=== PATIENT | female | born 1990 | race Caucasian/White ===

== ENCOUNTER → 2018-10-16 14:51 | Outpatient (CLI) | payer OTHER, SELFPAY ==
[2018-10-16 15:45] LABS: Basophils % 0.3 % (0.1-2.0); Eosinophils # 0.1 K/mm3 (0.0-0.4); Eosinophils % 1.1 % (0.1-12.0); Hematocrit 39.8 % (37.0-47.0); Lymphocytes # 2.2 K/mm3 (0.7-4.5); Lymphocytes % 17.5 % (10-50); Mean Corpuscular HGB Conc 32.6 g/dL (31.8-35.4); Mean Corpuscular Hemoglobin 30.2 pg (27.0-31.2); Mean Corpuscular Volume 92.6 fl (81-99); Mean Platelet Volume 6.7 fl (7.4-10.4); Monocytes # 0.4 K/mm3 (0.1-1.0); Neutrophils # 9.6 K/mm3 (1.8-7.8); Neutrophils % 78.1 % (37.0-80.0); Platelet Count 389 K/mm3 (142-424); Red Cell Distribution Width 13.1 % (11.5-17.5); White Blood Count 12.3 K/mm3 (4.8-10.8)
[2018-10-16 17:18] LABS: Thyroid Stimulating Hormone 3.21 uIU/ml (0.358-3.740)
[2018-10-19 07:02] LABS: HIV Screen 4th Generation wRfx Non Reactive (Non Reactive); Hepatitis B Surface Antigen Negative (Negative); Rapid Plasma Reagin Ab Titer Non Reactive (NonRea<1:1)
[2018-10-21 13:03] LABS: Rubella Antibodies, IgG 1.59 index (Immune >0.99)
== END ==
PROVIDERS: Visit Provider Obstetrics & Gynecology
DX: Z34.90 Encounter for supervision of normal pregnancy, unspecified, unspecified trimester (principal)
CPT/HCPCS: 36415; 84443; 85025; 86592; 86703; 86762; 86850; 87340; G0432

== ENCOUNTER → 2018-12-24 09:06 | Outpatient (CLI) | payer OTHER, SELFPAY ==
[2018-12-26 13:15] LABS: AFP Value 19.3 ng/mL (.); DIA MoM 0.74 (.); DIA Value 94.91 pg/mL (.); DSR (Second Trimester) 1 IN 9058 (.); Gest. Age on Collection Date 17.3 WEEKS (.); Maternal Age At EDD 29.8 yr (.); OSBR Risk 1 IN 10000 (.); Results Report (.); hCG MoM 0.66 (.); hCG Value 14859 mIU/mL (.); uE3 MoM 0.92 (.); uE3 Value 0.91 ng/mL (.)
[2018-12-28 08:20] LABS: Gestat. Age Based On EDD (.)
== END ==
PROVIDERS: Visit Provider Obstetrics & Gynecology
DX: Z34.90 Encounter for supervision of normal pregnancy, unspecified, unspecified trimester (principal)
CPT/HCPCS: 36415; 82106

== ENCOUNTER → 2019-03-18 09:15 | Outpatient (CLI) | payer OTHER, SELFPAY ==
[2019-03-18 10:47] LABS: Glucose 1 Hour 135 mg/dL (74-106)
== END ==
PROVIDERS: Visit Provider Obstetrics & Gynecology
DX: Z34.90 Encounter for supervision of normal pregnancy, unspecified, unspecified trimester (principal)
CPT/HCPCS: 36415; 82951

== ENCOUNTER → 2019-04-01 08:57 | Outpatient (CLI) | payer OTHER, SELFPAY ==
[2019-04-01 11:10] LABS: Glucose 1 Hour 191 mg/dL (74-106)
[2019-04-01 16:06] LABS: Glucose 2 Hour 165 mg/dL (74-106); Glucose 3 Hour 109 mg/dL (74-106)
== END ==
PROVIDERS: Visit Provider Obstetrics & Gynecology
DX: O99.810 Abnormal glucose complicating pregnancy (principal)
CPT/HCPCS: 36415; 82951

== ENCOUNTER → 2019-04-29 14:54 | Outpatient (CLI) | payer OTHER, SELFPAY | PROVIDERS: Visit Provider Obstetrics & Gynecology | DX: Z34.90 Encounter for supervision of normal pregnancy, unspecified, unspecified trimester (principal) | CPT/HCPCS: 86403 ==

== ENCOUNTER → 2019-05-03 09:01 | Outpatient (CLI) | payer OTHER, SELFPAY ==
[2019-05-03 09:22] LABS: Basophils % 0.2 % (0.1-2.0); Eosinophils # 0.2 K/mm3 (0.0-0.4); Eosinophils % 1.3 % (0.1-12.0); Hemoglobin 10.8 g/dL (12.2-16.2); Lymphocytes # 1.5 K/mm3 (0.7-4.5); Lymphocytes % 12.4 % (10-50); Mean Corpuscular HGB Conc 31.8 g/dL (31.8-35.4); Mean Corpuscular Hemoglobin 29.2 pg (27.0-31.2); Mean Corpuscular Volume 91.8 fl (81-99); Mean Platelet Volume 7.4 fl (7.4-10.4); Monocytes # 0.5 K/mm3 (0.1-1.0); Monocytes % 4.2 % (1.7-9.3); Neutrophils # 9.6 K/mm3 (1.8-7.8); Neutrophils % 81.9 % (37.0-80.0); Platelet Count 387 K/mm3 (142-424); Red Cell Distribution Width 13.8 % (11.5-17.5); White Blood Count 11.8 K/mm3 (4.8-10.8)
[2019-05-03 09:53] LABS: D-Dimer 379 ng/mL (0-400)
[2019-05-03 10:30] LABS: Alanine Aminotransferase 23 U/L (12-78); Anion Gap 15.8 mEq/L (5-15); Aspartate Amino Transferase 9 U/L (15-37); Blood Urea Nitrogen 11 mg/dL (7-18); Calcium 9.1 mg/dL (8.5-10.1); Carbon Dioxide 22 mmol/L (21.0-32.0); Chloride 106 mmol/L (98-107); Creatinine,Serum 0.66 mg/dL (0.55-1.02); Estimated Glomerular Filt Rate 106 ml/min (>60); GFR (African American) 128 ML/MIN (>60); Glucose 95 mg/dL (74-106); Potassium 3.8 mmoL/L (3.5-5.1); Sodium 140 mmol/L (136-145)
[2019-05-03 13:09] LABS: Activated Partial Thrombo Time 26.7 seconds (23.6-34.0); Fibrinogen 464 mg/dL (204-500); Prothrombin Time 9.4 seconds (9.4-11.8)
== END ==
PROVIDERS: Visit Provider Obstetrics & Gynecology
DX: Z34.90 Encounter for supervision of normal pregnancy, unspecified, unspecified trimester (principal)
CPT/HCPCS: 36415; 80048; 84450; 84460; 84550; 85025; 85378; 85384; 85610; 85730

== ENCOUNTER 2019-06-01 04:40 | Inpatient (IN) ==
[2019-06-01 06:29] LABS: Basophils % 0.1 % (0.1-2.0); Eosinophils # 0.1 K/mm3 (0.0-0.4); Eosinophils % 0.7 % (0.1-12.0); Hematocrit 38.5 % (37.0-47.0); Hemoglobin 12.6 g/dL (12.2-16.2); Lymphocytes # 1.4 K/mm3 (0.7-4.5); Lymphocytes % 10.9 % (10-50); Mean Corpuscular HGB Conc 32.7 g/dL (31.8-35.4); Mean Corpuscular Volume 93.9 fl (81-99); Mean Platelet Volume 6.8 fl (7.4-10.4); Monocytes # 0.5 K/mm3 (0.1-1.0); Monocytes % 3.8 % (1.7-9.3); Neutrophils % 84.4 % (37.0-80.0); Platelet Count 417 K/mm3 (142-424)
--- NOTE | 2019-06-01 06:29 | Progress Note ---
Internal Medicine - PN: Subj *Date: 06/01/19 *Time: 06:27 (This 28-year-old primigravid white female was admitted at 39 weeks of gestation for induction because of mild preeclampsia (she has been on labetalol) and gestational diabetes. Her cervix is 80% effaced, 1 cm, with a high presenting vertex. Bag of water intact. Current blood pressure 122/72. DTRs normal. Her complete record is on the chart. Plan is induction with intravenous Pitocin at 39 weeks of gestation. The patient has a narrow pelvis and understands the significant possibility of the need for section.) Exam Vital signs and Labs for Last 24 Hours: Temp Pulse Resp BP Pulse Ox 98.5 F 103 H 16 122/72 96 06/01/19 04:55 06/01/19 04:55 06/01/19 04:55 06/01/19 04:55 06/01/19 04:55 I & O for Last 24 hours: Intake & Output 05/29/19 05/30/19 05/31/19 06/01/19 11:59 11:59 11:59 11:59 Weight 257 lb
[2019-06-01 07:43] LABS: Microscopic, Urine URINE MICROSCOPIC (MICROSCOPIC)
[2019-06-01 07:47] LABS: Amphetamine/Metha Screen,Urine Negative ng/mL (<1000); Appearance,Urine CLEAR (Clear); Barbiturates Screen,Urine Negative ng/mL (<200); Benzodiazepines Screen,Urine Negative ng/mL (<200); Bilirubin,Urine Negative (Negative); Blood, Urine Negative (Negative); Cannabinoid Screen,Urine Negative ng/mL (<50); Cocaine Screen,Urine Negative ng/mL (<300); Color,Urine YELLOW (Yellow); Glucose,Urine (UA) Negative (Negative); Ketones,Urine Negative (Negative); Leukocyte Esterase,Urine 1+ (Negative); Methadone Screen,Urine Negative ng/mL (<300); Opiate Screen,Urine Negative ng/mL (<300); Phencyclidine Screen,Urine Negative ng/mL (<25); Protein,Urine Negative (Negative); Urobilinogen,Urine 0.2 EU/dl (0.2)
[2019-06-01 07:52] LABS: Bacteria,Urine 1+ /lpf
--- NOTE | 2019-06-01 09:16 | Progress Note ---
Internal Medicine - PN: Subj *Date: 06/01/19 *Time: 09:15 (Accu-Chek this morning was 100. Cervix is unchanged. Anthropoid pelvis (narrow). Will observe for now.) Exam Vital signs and Labs for Last 24 Hours: Temp Pulse Resp BP Pulse Ox 98.5 F 103 H 16 122/72 96 06/01/19 04:55 06/01/19 04:55 06/01/19 04:55 06/01/19 04:55 06/01/19 04:55 Laboratory Results - last 24 hr 06/01/19 05:30: Urine Color Yellow, Urine Appearance Clear, Urine pH 6.0, Ur Specific Center 1.010, Urine Protein Negative, Urine Glucose (UA) Negative, Urine Ketones Negative, Urine Blood Negative, Urine Nitrate Negative, Urine Bilirubin Negative, Urine Urobilinogen 0.2, Ur Leukocyte Esterase 1+ A, Urine RBC None, Urine WBC 5-10, Ur Squamous Epith Cells 5-10, Urine Bacteria 1+ 06/01/19 05:30: Urine Opiates Screen Negative, Urine Methadone Screen Negative, Ur Barbituates Screen Negative, Ur Phencyclidine Scrn Negative, Ur Amphetamines Screen Negative, U Benzodiazepines Scrn Negative, Urine Cocaine Screen Negative, U Marijuana (THC) Screen Negative 06/01/19 05:45: WBC 13.0 H, RBC 4.10 L, Hgb 12.6, Hct 38.5, MCV 93.9, MCH 30.7, MCHC 32.7, RDW 14.0, Plt Count 417, MPV 6.8 L, Neut % (Auto) 84.4 H, Lymph % (Auto) 10.9, [place] % (Auto) 3.8, Eos % (Auto) 0.7, Baso % (Auto) 0.1, Neut # (Au to) 11.0 H, Lymph # (Auto) 1.4, [place] # (Auto) 0.5, Eos # (Auto) 0.1, Baso # (Auto) 0.0 06/01/19 05:45: Blood Type O Positive, Antibody Screen Negative 06/01/19 06:54: POC Glucose 100 I & O for Last 24 hours: Intake & Output 05/29/19 05/30/19 05/31/19 06/01/19 11:59 11:59 11:59 11:59 Weight 257 lb
--- NOTE | 2019-06-01 14:05 | Operative Note ---
Date of procedure: 06/01/19 (Old primigravid white female with diet-controlled gestational diabetes and mild preeclampsia. Failed to progress in labor.) Pre-op Diagnosis:: 1. Term intrauterine . 2. Gestational diabetes. 3. Mild preeclampsia. 4. Cephalopelvic disproportion. Post-op Diagnosis:: 1. Term intrauterine , delivered. 9/10, male (weight in length pending) born at 1324. 2. Gestational diabetes. 3. Mild preeclampsia. 4. Leiomyomata uteri. Procedure performed:: Primary low transverse cervical section. Surgeon:: Cory Logan MD Shoeblack(s):: ANA Carbajal. TRANSPORTATION DIRECTOR:: Eyal Ascencio Anesthesia: spinal Estimated blood loss (mL): 400 Operative findings:: 1. As above. 2. Leiomyomata uteri. Operative note:: After the patient was prepped and draped in usual fashion and spinal anesthesia was administered, a low Pfannenstiel incision was made across the midline, and the fat and fascia were in the usual fashion, bleeders being clamped and coagulated along the way. The peritoneum was entered with Metzenbaum scissors, and extended above and below. The bladder peritoneum was sharply and bluntly dissected from the area of incision, and the bladder was protected with a bladder blade. The uterus was entered in a low transverse fashion with a knife, and the incision was extended bluntly, bilaterally. The amniotic sac was ruptured for clear fluid. The baby was found to be in the occiput posterior position and, with appropriate fundal pressure, the head was easily delivered. The baby's nasal and oropharynx were bulb suction, and the baby cried spontaneously on the abdomen, as was delivered. The cord was clamped and cut, 3 vessels were noted to be within the cord, and cord blood was obtained. The cord pH was 7.38. The baby was handed into the arms of the attending lab scientist, Dr. Mathur, who assigned Apgars of 9 at 1 minute and 10 at 5 minutes to this male (weight in length pending). The baby was taken to the nursery in excellent condition. The placenta was delivered manually, intact. A ring force ps was used to assure adequate drainage to the cervix; this was then passed off the field, as an unsterile instrument. The uterus was closed in 2 layers, the first a running locked suture of #1 Vicryl as an endometrial layer; followed by a running unlocked suture of #1 Vicryl as a myometrial layer, imbricating over the first. The bladder peritoneum was closed with a running unlocked suture of 2-0 Vicryl. Blood and clots were then swept from the gutters, and the tubes and ovaries were inspected and found to be normal. There was a large leiomyoma at the fundus and another one posteriorly to the left of midline. These remain in situ. The peritoneum was grasped with 3 Ana clamps, and closed with a running semi-lock suture of 0 Vicryl. The muscle was approximated with a running unlocked suture of 0 Vicryl. The fascia was closed with a running locked suture of #1 Vicryl. Subcutaneous fat and Devi's fascia were closed with a running unlocked suture of 2-0 Vicryl. The skin was closed with a subcuticular suture of 3-0 Vicryl, and appropriately dressed. The sponge and needle counts correct. The estimated blood loss was 400 cc. The urine was clear in the Church catheter. A pelvic examination expressed blood and clots from the involuting uterus, with IV Pitocin running. The patient tolerated the procedure well, was taken to PACU in excellent condition. Her blood type is O+; her rubella titer is immune. She plans to breast-feed. Condition: stable Disposition: PACU Specimens:: None Complications:: None
--- NOTE | 2019-06-01 14:13 | Progress Note ---
[facility] Anesthesia Checklist - Structural Data Admitted From: Home Planned Operative Procedure/s: c/section Consent for Planned Operative Procedure(s) Verified: Yes - Airway Assessment C-Spine Mobility Assessed: Yes TMJ Mobility Assessed: Yes Dentition: Good Dentition - Neurological Assessment Level of Consciousness: Awake, Alert, Appropriate - Anesthesia Plan Anesthesia Risk discussed: Yes Anesthesia Plan: Verified ASA Class: II Anesthesia Type: Spinal Acuity:: none [facility] History I have reviewed the patient's past medical history: Yes *Have you ever received a pneumonia vaccine?: No *Have you received a flu vaccine this season?: No Anesthesia experience/problems:: none Other Surgeries: Yes: Appendectomy. No: Amputation: No Fractures: No - *Social History Smoking Status: Never smoker Alcohol Intake: never Alcohol Intake Frequency:: other Substance Use Type: denies use *Occupational Status:: employed *Travel in the last 8 weeks: Inside the [facility] Family Hx:: No significant family history Para: 0
--- NOTE | 2019-06-01 14:15 | Progress Note ---
[facility] Anesthesia Record Part I Intake, IV Amount: 1,500 Estimated blood loss (mL): 600 Urine output (mL): 350 Blood Pressure: 132/74 SaO2: 97 Pulse Rate: 78 Respiratory Rate: 12 Temperature: 97.4 F Patient is:: Awake, Stable Stable to PACU at:: 14:10
--- NOTE | 2019-06-01 14:15 | Progress Note ---
[facility] Anesthesia Record Part II Discharge Time: 14:40 Destination: Obstetric PACU nurse assessment reviewed?: Yes Patient Condition:: Good Anesthesia Complications:: None Swallowing reflex intact?: Yes Cyanosis?: No
[2019-06-02 07:04] LABS: Hematocrit 33.9 % (37.0-47.0); Hemoglobin 11.1 g/dL (12.2-16.2)
--- NOTE | 2019-06-02 08:43 | Progress Note ---
Internal Medicine - PN: Subj *Date: 06/02/19 *Time: 08:41 (This is /postop day #1. Patient is afebrile. Vital signs stable. Wound clean. Abdomen soft. Lochia normal. Nursing well. The baby is being circumcised this morning. Hemoglobin 11.1 g, but clinically stable. Impression: Stable.) Exam Vital signs and Labs for Last 24 Hours: Temp Pulse Resp BP Pulse Ox 97.6 F 108 H 20 115/68 99 06/02/19 07:46 06/02/19 07:46 06/02/19 07:46 06/02/19 07:46 06/02/19 07:46 Laboratory Results - last 24 hr 06/01/19 13:32: Cord ABG pH 7.35 06/01/19 14:14: POC Glucose 90 06/02/19 06:37: Hgb 11.1 L, Hct 33.9 L I & O for Last 24 hours: Intake & Output 05/30/19 05/31/19 06/01/19 06/02/19 11:59 11:59 11:59 11:59 Intake Total 1500 / 1500 Output Total 350 / 350 Balance 1150 / 1150 Weight 257 lb Microbiology Reports for the Last 24 Hours: Microbiology 06/01/19 05:30 Urine,Clean Catch Urine Culture - Preliminary NO GROWTH AFTER 24 HOURS
--- NOTE | 2019-06-03 06:30 | Progress Note ---
Internal Medicine - PN: Subj *Date: 06/03/19 *Time: 06:29 (This is /postop day #2. The patient is afebrile. Vital signs stable. Wound clean. Abdomen soft. Lochia normal. Uterine fundus involuting well. Nursing well. Impression: Stable.) Exam Vital signs and Labs for Last 24 Hours: Temp Pulse Resp BP Pulse Ox 98.0 F 100 H 18 117/71 100 06/02/19 16:02 06/02/19 16:02 06/02/19 16:02 06/02/19 16:02 06/02/19 16:02 Laboratory Results - last 24 hr 06/02/19 06:37: Hgb 11.1 L, Hct 33.9 L I & O for Last 24 hours: Intake & Output 05/31/19 06/01/19 06/02/19 06/03/19 11:59 11:59 11:59 11:59 Intake Total 1500 / 1500 Output Total 350 / 350 900 / 900 Balance 1150 / 1150 -900 / -900 Weight 257 lb Microbiology Reports for the Last 24 Hours: Microbiology 06/01/19 05:30 Urine,Clean Catch Urine Culture - Preliminary NO GROWTH AFTER 24 HOURS
[2019-06-03 17:08] VITALS: BP 126/74
--- NOTE | 2019-06-04 06:35 | Progress Note ---
Internal Medicine - PN: Subj *Date: 06/04/19 *Time: 06:34 Interval history: This is /postop day #3. The patient is afebrile. Her vital signs are stable. Blood pressure 126/72. Wound clean. Abdomen soft. Lochia normal. Nursing well. She will be discharged today. Exam Vital signs and Labs for Last 24 Hours: Temp Pulse Resp BP Pulse Ox 98.3 F 96 H 18 126/74 100 06/03/19 16:55 06/03/19 16:55 06/03/19 16:55 06/03/19 16:55 06/03/19 16:55 I & O for Last 24 hours: Intake & Output 06/01/19 06/02/19 06/03/19 06/04/19 11:59 11:59 11:59 11:59 Intake Total 1500 / 1500 Output Total 350 / 350 900 / 900 Balance 1150 / 1150 -900 / -900 Weight 257 lb Microbiology Reports for the Last 24 Hours: Microbiology 06/01/19 05:30 Urine,Clean Catch Urine Culture - Final Multiple organisms, suggests contamination.
--- NOTE | 2019-06-04 06:40 | Discharge Summary ---
General - General Admission date:: 06/01/19 Discharge date: 06/04/19 (This 28-year-old 1, now para 1, Ab0 white female was admitted at 39 weeks of gestation with a regular contractions. Her course was complicated by mild gestational diabetes and mild preeclampsia. Her blood pressure and blood sugar on admission were normal. (She had been on labetalol.) She was augmented with intravenous Pitocin, and labored under labor epidural, which worked well. However, minimal progress was made, and ultimately she was taken to the operating room, where she underwent a primary low transverse cervical section, without complications. The baby was an 9/10, 9 pound 2 ounce, 20 inch male , who is breast- feeding, has been circumcised, and is done well. The baby was born on 06/01/2019 at 1324. At surgery, several large leiomyomata were noted, and remain in situ. and postoperatively, the patient has done well. She is eating and ambulating, and has had a bowel movement. Her wound is clean. Her abdomen soft. Her uterine fundus has involuted well. Her lochia is normal. Her blood pressure is 126/72. DTRs are normal. She is not a smoker. She is discharged home on the third /postoperative day on iron and vitamins (initial hemoglobin 12.6 g (postoperatively 11.1 g)) she has done well with pain control on just Tylenol and Motrin and will be discharged on that regimen. Her blood type is O+. Her rubella titer is immune. She is given appropriate instructions as to diet, exercise, and wound care, and she is to return the office in 2 weeks for follow-up.) Hospital Course Rhogam Administration: Not Indicated Objective Vital signs: Temp Pulse Resp BP Pulse Ox 98.3 F 96 H 18 126/74 100 06/03/19 16:55 06/03/19 16:55 06/03/19 16:55 06/03/19 16:55 06/03/19 16:55 Discharge Plan - Patient Discharge Instructions Patient Instructions: DI for , Surgical Site Infection - Follow up Plan Home Medications: Home Medications Medication Instructions Recorded Confirmed Type 1 tab PO DAILY 10/16/18 06/01/19 History vitamin,calcium,dymrgpfn-dnwy-zurbg acid tablet Ferrous Sulfate [Ferrous Sulfate 325 mg PO DAILY 06/01/19 06/01/19 History 325mg Tablet] Labetalol HCl 200 mg PO BID 06/01/19 06/01/19 History Prescriptions/Medication Reconciliation: No Action vitamin,calcium,dabqeanz-vwce-edufj acid tablet 1 tab PO DAILY Labetalol HCl 200 mg PO BID Ferrous Sulfate [Ferrous Sulfate 325mg Tablet] 325 mg PO DAILY - Problem Reconciliation Problems Reviewed?: Yes
== END 2019-06-04 10:45 | disposition home or self-care (01) | DRG 787 ==
LOC: OB 04:40
PROVIDERS: ADMIT Obstetrics & Gynecology; ATTEND Obstetrics & Gynecology

== ENCOUNTER 2021-04-24 08:59 | Emergency (ER) | payer BC, SELFPAY ==
[2021-04-24 09:00] VITALS: BP 132/83; PULSE 86; RESP 21; TEMP 36.8; O2SAT 99; BMI 39.4
[2021-04-24 09:22] LABS: UTC Strep Screen (Rapid) Negative (Negative)
--- NOTE | 2021-04-24 09:33 | HMH.EDUTC ---
[facility] [place] Disposition Clinical Impression: Otitis media Qualifiers: Otitis media type: unspecified Laterality: right Qualified Code(s): H66.91 - Otitis media, unspecified, right ear Disposition: Home, Self-Care Condition on Discharge: Good Instructions: Middle Ear Infections (Alternative Therapy), Sinusitis, Middle Ear Infection, DI for Sinusitis Additional Instructions: *Monitor Temp, Over the counter Motrin or Tylenol as directed/as needed Tylenol every 4 hours and Motrin every 6 hours (as long as your family doctor has told you that you can take it) for fever or pain. and straight to ER if unable to lower temp less than 101.0 after medication given *Warm salt water gargles may help to soothe the throat *Throat Lozenges *Warm fluids like tea with honey may help to soothe the throat *Sleep elevated *Humidifier/Vaporizer *Bromfed may cause drowsiness. Know how it effects you (your child) before driving, caring for small child, or sending your child to school. Not other antihistamines/allergy medications while taking bromfed Your throat swab was sent for culture. Those results are typically sent to your primary care. Be sure to follow up in 2-3 days with your family doctor/primary care physician if no improvement so they can review those result and treat if necessary. If you don?t have a primary care doctor, I recommend you get one but in the mean time, you will have to return to a walk in clinic Follow up IMMEDIATELY for new or worsening symptoms or no Noticeable improvement over the next 48-72 hours. 911 for difficulty breathing or swallowing Prescriptions: Amoxicillin/Potassium Clav [Augmentin 875-125 Tablet] 1 tab PO Q12H 10 Days #20 tab Transmission Status: Received by [id number] Brompheniramine/Pseudoephed/Dm [Bromfed Dm Cough Syrup] 5 - 10 ml PO Q46H PRN #150 ml PRN Reason: Cough Transmission Status: Received by [facility] methylPREDNISolone [Medrol 4mg tab] 4 mg PO DIRECTED #21 tab Transmission Status: Received by [id number] Referrals: Provider,Referral, MD [Primary Care Provider] - As needed Forms: Work/School Release Time of Disposition: 09:41 Medical Decision Making - Henrry Inquiry Pt receiving controlled substance: No Henrry was queried for this patient: No Vital Signs: 04/24/21 09:00 04/24/21 09:42 Temperature 98.2 F 98.2 F Temperature Source Oral Pulse Rate 86 Pulse Rate [Right Brachial] 86 Respiratory Rate 21 Blood Pressure 132/83 Blood Pressure [Left Arm] 132/83 Blood Pressure Mean [Left Arm] 99 Blood Pressure Source [Left Arm] Automatic Cuff Blood Pressure Position [Left Arm] Sitting 02 Sat by Pulse Oximetry 99 Oxygen Delivery Method Room Air - Lab Data Lab results reviewed: Yes: I reviewed the patient's lab results. Lab Results 04/24/21 09:13: Strep Scn Rapid Clinic Negative Orders (Tests/Meds): ORDERS Category Date Time Status Strep Screen Confirmation Stat Micro 04/24/21 09:13 Received [facility] [place] HPI - General Stated complaint: stuffy nose, congestion, Rt ear pain Time Seen by Provider: 04/24/21 09:35 Mode of Arrival: Ambulatory Source of Information: Patient Limitations: No Limitations Description of Symptoms (Recalled from Triage Doc. by RN): PATIENT C/O CONGESTION, EARACHE, COUGH, SORE THROAT, AND RUNNY NOSE X 2 DAYS HEENT Symptoms (Recalled from RN notes): Yes Resp Symptoms (Recalled from RN notes): No Skin Symptoms (Recalled from RN notes): No MS Symptoms (Recalled from RN notes): No Functional Status (Recalled from RN notes): WNL - History of Present Illness Provider Complaint: Patient states that she has been having pain in her right ear for several days, sinus pressure and congestion along with cough and sore throat States that today she was feeling worse today so she came in to get checked - Related Data Previous Rx's Medication Instructions Recorded Amoxicillin/Potassium Clav 1 tab PO Q12H 10 Days
[2021-04-24 09:42] VITALS: BP 132/83; PULSE 86; RESP 21; TEMP 36.8; O2SAT 99
== END 2021-04-24 09:50 | disposition home or self-care (01) ==
PROVIDERS: Emergency Provider Nurse Practitioner
DX: H66.91 Otitis media, unspecified, right ear (principal)
CPT/HCPCS: 87880; 99202; G0463

== ENCOUNTER 2021-08-24 09:00 | Emergency (ER) | payer BC, SELFPAY ==
[2021-08-24 09:08] VITALS: BP 124/92; PULSE 94; RESP 18; TEMP 36.6; O2SAT 98; BMI 39.4
[2021-08-24 09:17] VITALS: BP 124/92; PULSE 94; RESP 18; TEMP 36.6
[2021-08-24 09:23] LABS: UTC Strep Screen (Rapid) Positive (Negative)
--- NOTE | 2021-08-24 09:36 | HMH.EDUTC ---
[facility] [place] Clinical Impression: Strep throat Disposition: Home, Self-Care Condition on Discharge: Good Instructions: Strep Throat, DI for Strep Throat Additional Instructions: Drink plenty of fluids. Take tylenol or ibuprofen for pain or fever. Take the medications as directed. Follow up with your regular doctor. GO TO THE ER FOR ANY WORSENING SYMPTOMS Throw your tooth brush away and get a new one. Prescriptions: Brompheniramine/Pseudoephed/Dm [Bromfed Dm Cough Syrup] 5 ml PO Q6HP PRN #240 ml PRN Reason: Cough Transmission Status: Received by [facility] Amoxicillin [Amoxicillin 500mg Tab] 500 mg PO TID 10 Days #30 tab Transmission Status: Received by [facility] predniSONE [Prednisone 20mg Tab] 20 mg PO BID 3 Days #6 tab Transmission Status: Received by [facility] Referrals: Provider,Referral, MD [Primary Care Provider] - Forms: Work/School Release Time of Disposition: 09:43 Medical Decision Making - Medical Records Medical records reviewed: No: I reviewed the patient's medical records. - Henrry Inquiry Pt receiving controlled substance: No Vital Signs: 08/24/21 09:08 08/24/21 09:17 Temperature 97.9 F 97.9 F Temperature Source Oral Pulse Rate 94 H Pulse Rate [Left] 94 H Respiratory Rate 18 18 Blood Pressure 124/92 H Blood Pressure [Right Arm] 124/92 H Blood Pressure Mean [Right Arm] 102 02 Sat by Pulse Oximetry 98 - Lab Data Lab results reviewed: Yes: I reviewed the patient's lab results. Lab Results 08/24/21 09:22: Strep Scn Rapid Clinic Positive A [facility] [place] - General Stated complaint: sore throat,rash on hands and feet Time Seen by Provider: 08/24/21 09:36 Mode of Arrival: Ambulatory Source of Information: Patient Limitations: No Limitations Description of Symptoms (Recalled from Triage Doc. by RN): pt c/o of a sore throat, rash/blisters around her hands, feet and mouth, and R ear ache. HEENT Symptoms (Recalled from RN notes): Yes (sore throat, R ear ache) Resp Symptoms (Recalled from RN notes): No Skin Symptoms (Recalled from RN notes): Yes (rash on hands, feet and mouth) MS Symptoms (Recalled from RN notes): No Functional Status (Recalled from RN notes): na - History of Present Illness Provider Complaint: She c/o sore throat, chilling, low grade fever, and a rash on her hands and feet for the past 2 days. - Related Data Previous Rx's Medication Instructions Recorded Amoxicillin/Potassium Clav 1 tab PO Q12H 10 Days #20 tab 04/24/21 [Augmentin 875-125 Tablet] Brompheniramine/Pseudoephed/Dm 5 - 10 ml PO Q46H PRN #150 ml 04/24/21 [Bromfed Dm Cough Syrup] methylPREDNISolone [Medrol 4mg 4 mg PO DIRECTED #21 tab 04/24/21 tab] Amoxicillin [Amoxicillin 500mg Tab] 500 mg PO TID 10 Days #30 tab 08/24/21 Brompheniramine/Pseudoephed/Dm 5 ml PO Q6HP PRN #240 ml 08/24/21 [Bromfed Dm Cough Syrup] predniSONE [Prednisone 20mg 20 mg PO BID 3 Days #6 tab 08/24/21 Tab] Allergies Allergy/AdvReac Type Severity Reaction Status Date / Time No Known Allergies Allergy Verified 06/15/19 13:59 - Worker's Comp Is this a Worker's Comp case?: No [facility] History - Hepatitis A Screen Drug use history?: No High risk sexual behaviors?: No History of sexually transmitted infection?: No Currently employed?: No Childcare worker?: No Do you have indoor plumbing?: Yes Do you have electricity?: Yes Attestation statement:: This patient has been screened for Hepatitis A risk factors. I have reviewed the patient's past medical history: Yes Other Surgeries: Yes: Appendectomy, Amputation: No Fractures: No Comment: Appendectomy (open)--1999. P* C/S--05/2019 - Social History Smoking Status: Never smoker Alcohol Intake: never Alcohol Intake Frequency:: other Substance Use Type: denies use Occupational Status: other Family Hx:: No significant family history Comment: 06/01/19 @ 1324----
== END 2021-08-24 09:48 | disposition home or self-care (01) ==
PROVIDERS: Emergency Provider Nurse Practitioner Family
DX: J02.0 Streptococcal pharyngitis (principal)
CPT/HCPCS: 87880; 99202; G0463

== ENCOUNTER 2021-10-19 13:27 | Emergency (ER) | payer BC, SELFPAY ==
[2021-10-19 14:37] VITALS: BP 138/88; PULSE 92; RESP 18; TEMP 36.9; O2SAT 96; BMI 40.3
--- NOTE | 2021-10-19 14:43 | HMH.EDUTC ---
[facility] [place] Disposition Clinical Impression: Exposure to COVID-19 virus Pharyngitis Qualifiers: Pharyngitis/tonsillitis etiology: unspecified etiology Qualified Code(s): J02.9 - Acute pharyngitis, unspecified Sinusitis Qualifiers: Sinusitis location: unspecified location Chronicity: acute Recurrence: non-recurrent Qualified Code(s): J01.90 - Acute sinusitis, unspecified Disposition: Home, Self-Care Condition on Discharge: Good Instructions: DI for Sinusitis, Preventing the Spread of Coronavirus Discharge Instructions, DI for Pharyngitis/Tonsillopharyngitis -- Adult Additional Instructions: Drink plenty of fluids. Take tylenol or ibuprofen for pain or fever. Take the medications as directed. Follow up with your regular doctor. GO TO THE ER FOR ANY WORSENING SYMPTOMS Quarantine until you know the results of your covid-19 test. If it is positive, the health department should call you and give you further instructions about your length of Quarantine and other things. Notify your school or workplace of your results and follow their instructions regarding return to work/school. Prescriptions: Brompheniramine/Pseudoephed/Dm [Bromfed Dm Cough Syrup] 5 ml PO Q6HP PRN #240 ml PRN Reason: Cough Transmission Status: Pending to [facility] Ondansetron [Zofran 4mg ODT] 4 mg PO Q8HP PRN #20 tab PRN Reason: Nausea Transmission Status: Pending to [facility] Azithromycin [Z-Miguel 250mg Tab*] 250 mg PO UD DOSE PK #6 tab Transmission Status[facility] to [facility] Referrals: Provider,Referral, [Primary Care Provider] - Forms: Work/School Release Time of Disposition: 15:36 Medical Decision Making - Medical Records Medical records reviewed: No: I reviewed the patient's medical records. - Henrry Inquiry Pt receiving controlled substance: No Vital Signs: 10/19/21 14:37 Temperature 98.4 F Temperature Source Oral Pulse Rate [Left] 92 H Respiratory Rate 18 Blood Pressure [Right Arm] 138/88 Blood Pressure Mean [Right Arm] 104 02 Sat by Pulse Oximetry 96 - Lab Data Lab results reviewed: Yes: I reviewed the patient's lab results. Lab Results 10/19/21 14:40: Strep Scn Rapid [facility] Negative 10/19/21 14:40: Influenza Type A Ag Negative, Influenza Type B Ag Negative Orders (Tests/Meds): ORDERS Category Date Time Status Covid-19 Nasal PCR ([facility]) Routine Lab 10/19/21 14:36 Received Strep Screen Confirmation Routine Micro 10/19/21 14:40 Received [facility] UTC HPI - General Stated complaint: sore throat, cough, runny nose, congestion Time Seen by Provider: 10/19/21 14:43 Mode of Arrival: Ambulatory Source of Information: Patient Limitations: No Limitations Description of Symptoms (Recalled from Triage Doc. by RN): pt c/o a sore throat, nasal drainage, cough and ears aching. x5 days. HEENT Symptoms (Recalled from RN notes): Yes (sore throat, nasal drainage and ears ache) Resp Symptoms (Recalled from RN notes): Yes (cough) Skin Symptoms (Recalled from RN notes): No MS Symptoms (Recalled from RN notes): No Functional Status (Recalled from RN notes): wnl - History of Present Illness Provider Complaint: She states that for the past 5 days she had a sore throat, cough, sinus congestion, and she has felt bad. She denies n/v/d and fever. She has been fully vaccinated against covid-19. She is a respiratory therapist at [employer]. - Related Data Previous Rx's Medication Instructions Recorded Amoxicillin/Potassium Clav 1 tab PO Q12H 10 Days #20 tab 04/24/21 [Augmentin 875-125 Tablet] Brompheniramine/Pseudoephed/Dm 5 - 10 ml PO Q46H PRN #150 ml 04/24/21 [Bromfed Dm Cough Syrup] methylPREDNISolone [Medrol 4mg 4 mg PO DIRECTED #21 tab 04/24/21 tab] Amoxicillin [Amoxicillin 500mg Tab] 500 mg PO TID 10 Days #30 tab 08/24/21 Brompheniramine/Pseudoephed/Dm 5 ml PO Q6HP PRN #240 ml 08/24/21 [Bromfed Dm Cough Syrup] predniSONE [Prednisone 20mg 20 mg PO BID
[2021-10-19 15:00] LABS: UTC Influenza A Antigen Negative (Negative); UTC Influenza B Antigen Negative (Negative)
[2021-10-19 15:01] LABS: UTC Strep Screen (Rapid) Negative (Negative)
[2021-10-19 15:37] VITALS: BP 138/88; PULSE 92; RESP 18; TEMP 36.9
== END 2021-10-19 15:44 | disposition home or self-care (01) ==
PROVIDERS: Emergency Provider Nurse Practitioner Family
DX: J01.90 Acute sinusitis, unspecified (principal); J02.9 Acute pharyngitis, unspecified; Z20.822 Contact with and (suspected) exposure to COVID-19
CPT/HCPCS: 87804; 87880; 99203; C9803; G0463; U0003; U0005

== ENCOUNTER 2022-08-19 15:39 | Emergency (ER) | payer BC, SELFPAY ==
[2022-08-19 18:34] VITALS: BP 134/87; PULSE 87; RESP 18; TEMP 36.9; O2SAT 97; BMI 39.4
[2022-08-19 18:41] LABS: UTC Strep Screen (Rapid) Negative (Negative)
--- NOTE | 2022-08-19 18:59 | EXP.UTC ---
Discharge Plan Disposition Patient Disposition: Home, Self-Care Condition: Good Prescriptions Prescriptions: New cefdinir 300 mg capsule 300 mg PO BID 10 Days Qty: 20 0RF benzonatate 100 mg capsule 100 mg PO TID PRN (Reason: cough) Qty: 30 0RF methylprednisolone [Medrol (Miguel)] 4 mg tablets,dose pack See Rx Instructions .Route .COMPLEX 6 Days Qty: 21 0RF Rx Instructions: taper pack; No Action azithromycin 250 MG tablet 250 mg PO UD DOSE PK Qty: 6 0RF Rx Instructions: Take two (2) tablets today, then one (1) tablet days #2 thru #5 [id number]-[id number] 118 ML syrup 5 ml PO Q6HP PRN (Reason: Cough) Qty: 240 0RF ondansetron 4 MG tablet,disintegrating 4 mg PO Q8HP PRN (Reason: Nausea) Qty: 20 0RF methylprednisolone 4 MG tablet 4 mg PO DIRECTED Qty: 21 0RF Rx Instructions: Take as directed on package instructions [id number] 118 ML syrup 5 - 10 ml PO Q46H PRN (Reason: Cough) Qty: 150 0RF amoxicillin-pot clavulanate 1 EACH tablet 1 tab PO Q12H 10 Days Qty: 20 0RF prednisone 20 MG tablet 20 mg PO BID 3 Days Qty: 6 0RF amoxicillin 500 MG tablet 500 mg PO TID 10 Days Qty: 30 0RF wriksayjxgoqajj-[id number] 118 ML syrup 5 ml PO Q6HP PRN (Reason: Cough) Qty: 240 0RF Referrals Follow up/Referrals: Provider,Referral, MD [Primary Care Provider] - See instructions Activity Restrictions/Add. Instructions Additional Instructions/Restrictions: *Monitor Temp, Over the counter Motrin or Tylenol as directed/as needed Tylenol every 4 hours and Motrin every 6 hours (as long as your family doctor has told you that you can take it) for fever or pain. and straight to ER if unable to lower temp less than 101.0 after medication given *Warm salt water gargles may help to soothe the throat *Throat Lozenges? *Warm fluids like tea with honey may help to soothe the throat? *Sleep elevated *Humidifier/Vaporizer Your throat swab was sent for culture. Those results are typically sent to your primary care. Be sure to follow up in 2-3 days with your family doctor/primary care physician if no improvement so they can review those result and treat if necessary. If you don?t have a primary care doctor, I recommend you get one but in the mean time, you will have to return to a walk in clinic Follow up IMMEDIATELY for new or worsening symptoms or no Noticeable improvement over the next 48-72 hours. 911 for difficulty breathing or swallowing Clinical Impressions Clinical Impression: Otitis media Qualifiers: Otitis media type: unspecified Laterality: right Qualified Code(s): H66.91 - Otitis media, unspecified, right ear Stand Alone Forms Stand Alone Forms: Work/School Release Instructions Patient Instructions: Middle Ear Infection, Cefdinir Discharge ED Provider: Radha Norman [facility] [place] HPI General Stated complaint: sore throat, congestion Mode of Arrival: Ambulatory Source of Information: Patient Limitations: No Limitations Time Seen by Provider: 08/19/22 18:59 Description of Symptoms (Recalled from Triage Doc. by RN): pt comes in with c/o cough, sore throat, right ear pain, fever, congestion. symptoms began friday HEENT Symptoms (Recalled from RN notes): Yes Resp Symptoms (Recalled from RN notes): Yes Skin Symptoms (Recalled from RN notes): No MS Symptoms (Recalled from RN notes): No Functional Status (Recalled from RN notes): n/a History of Present Illness Provider Complaint: Patient states that she has been having pain in right ear, sore throat, fever, chills, cough and nasal congestion on Friday that has continued to get worse States that today she was still feeling bad so she came in to get checked out Related Data Previous Rx's Medication Instructions Recorded amoxicillin 875 mg-potassium 1 tab PO Q12H 10 days #20 tabs 04/24/21 clavulanate 125 mg tablet ijmmuhttocekzhg-zyffsbueeuylmtq-OP 5 - 10
[2022-08-19 19:18] LABS: UTC Influenza A Antigen Negative (Negative)
[2022-08-19 19:19] LABS: UTC Influenza B Antigen Negative (Negative)
[2022-08-19 19:20] VITALS: BP 134/87; PULSE 87; RESP 18; TEMP 36.9
== END 2022-08-19 19:20 | disposition home or self-care (01) ==
PROVIDERS: Emergency Provider Nurse Practitioner
DX: H66.91 Otitis media, unspecified, right ear (principal); J02.9 Acute pharyngitis, unspecified; R50.9 Fever, unspecified; R05.9 Cough, unspecified; R51.9 Headache, unspecified; R11.0 Nausea; Z79.52 Long term (current) use of systemic steroids; Z79.899 Other long term (current) drug therapy
CPT/HCPCS: 87804; 87880; 99213; G0463

== ENCOUNTER 2022-10-03 08:48 | Emergency (ER) | payer BC, SELFPAY ==
[2022-10-03 09:00] VITALS: BP 133/92; PULSE 89; RESP 19; TEMP 36.9; O2SAT 98; BMI 41.8
--- NOTE | 2022-10-03 09:25 | EXP.UTC ---
Discharge Plan Disposition Patient Disposition: Home, Self-Care Condition: Good Prescriptions Prescriptions: New amoxicillin 875 mg tablet 875 mg PO BID Qty: 20 0RF fluticasone propionate [Flonase Allergy Relief] 50 mcg/actuation spray,suspension 1 spray intranasal DAILY Qty: 16 0RF Rx Instructions: administer into each nostril Referrals Follow up/Referrals: Provider,Referral, MD [Primary Care Provider] - See instructions Activity Restrictions/Add. Instructions Additional Instructions/Restrictions: *Monitor Temp, Over the counter Motrin or Tylenol as directed/as needed Tylenol every 4 hours and Motrin every 6 hours (as long as your family doctor has told you that you can take it) for fever or pain. and straight to ER if unable to lower temp less than 101.0 after medication given *Sleep elevated *Humidifier/Vaporizer *Flonase 2 sprays in each nostril daily but be aware that it may take 2-3 days before you notice improvement Follow up IMMEDIATELY for new or worsening symptoms or no Noticeable improvement over the next 48-72 hours. 911 for difficulty breathing or swallowing Clinical Impressions Clinical Impression: Otitis media Instructions Patient Instructions: Middle Ear Infection Discharge ED Provider: Radha Norman [facility] [place] General Stated complaint: Head congestion, RT ear pain Mode of Arrival: Ambulatory Source of Information: Patient Limitations: No Limitations Time Seen by Provider: 10/03/22 09:25 Description of Symptoms (Recalled from Triage Doc. by RN): PATIENT C/O RIGHT EAR PAIN AND CONGESTION X 3 DAYS HEENT Symptoms (Recalled from RN notes): Yes Resp Symptoms (Recalled from RN notes): No Skin Symptoms (Recalled from RN notes): No MS Symptoms (Recalled from RN notes): No Functional Status (Recalled from RN notes): WNL History of Present Illness Provider Complaint: Patient states that she has been having sinus congestion and pressure for a couple of days States that she is also having pain in her right ear States today it was hurting worse so she came in to get it checked Related Data Previous Rx's Medication Instructions Recorded amoxicillin 875 mg tablet 875 mg PO BID #20 tabs 10/03/22 fluticasone propionate 50 1 spray intranasal DAILY #16 grams 10/03/22 mcg/actuation nasal spray,suspension (Flonase Allergy Relief) Allergies Allergy/AdvReac Type Severity Reaction Status Date / Time No Known Allergies Allergy Verified 08/19/22 18:37 Worker's Comp Is this a Worker's Comp case?: No [facility] Disclaimer: The information contained in this section may have been updated after the patient was seen, as this information can be updated by other users. Medical History (Updated 10/03/22 @ 09:29 by Radha Norman APRN) Kidney stone Surgical History (Updated 10/03/22 @ 09:13 by Barbara Bailey RN) History of appendectomy History of section Social History (Updated 10/03/22 @ 09:13 by Barbara Bailey RN) Smoking Status: Never smoker alcohol intake: never substance use type: denies use current occupational status: other Travel in the last 8 weeks: None ROS Obtained: Yes All systems reviewed & no additional complaints except as documented and Yes Systems reviewed as appropriate & no additional complaints except as documented Constitutional Constitutional: Reports system reviewed and no additional complaints, except as documented and Reports as per HPI ENT Ears, Nose, Mouth, and Throat: Reports system reviewed and no additional complaints, except as documented, Reports as per HPI, Reports otalgia, Reports nasal congestion and Reports sinus pressure Cardiovascular Cardiovascular: Reports system reviewed and no additional complaints, except as documented and Reports as per HPI Respiratory Respiratory: Reports system reviewed and no additional complaints, except as documented and Reports as per HPI Physical Exam General General appearanc
[2022-10-03 09:29] VITALS: BP 133/92; PULSE 89; RESP 19; TEMP 36.9; O2SAT 98
== END 2022-10-03 09:37 | disposition home or self-care (01) ==
PROVIDERS: Emergency Provider Nurse Practitioner
DX: H66.90 Otitis media, unspecified, unspecified ear (principal)
CPT/HCPCS: 99212; G0463

== ENCOUNTER 2023-01-06 09:41 | Emergency (ER) | payer BC, SELFPAY ==
--- NOTE | 2023-01-06 09:43 | ED_ITS ---
Discharge Plan Prescriptions Prescriptions: No Action amoxicillin 875 mg tablet 875 mg PO BID Qty: 20 0RF fluticasone propionate [Flonase Allergy Relief] 50 mcg/actuation spray,suspension 1 spray intranasal DAILY Qty: 16 0RF Rx Instructions: administer into each nostril General Adult HPI General Stated complaint: SORE THROAT-COUGHING Time Seen by Provider: 01/06/23 09:43 Related Data Previous Rx's Medication Instructions Recorded amoxicillin 875 mg tablet 875 mg PO BID #20 tabs 10/03/22 fluticasone propionate 50 1 spray intranasal DAILY #16 grams 10/03/22 mcg/actuation nasal spray,suspension (Flonase Allergy Relief) Allergies Allergy/AdvReac Type Severity Reaction Status Date / Time No Known Allergies Allergy Verified 08/19/22 18:37 [facility] Disclaimer: The information contained in this section may have been updated after the patient was seen, as this information can be updated by other users. Medical History (Updated 10/03/22 @ 09:29 by Radha Norman APRN) Kidney stone Surgical History (Updated 10/03/22 @ 09:13 by Barbara Bailey RN) History of appendectomy History of section Social History (Updated 10/03/22 @ 09:13 by Barbara Bailey RN) Smoking Status: Never smoker alcohol intake: never substance use type: denies use current occupational status: other Travel in the last 8 weeks: None Critical Care Time Critical Care Time Attestation: On , the high probability of a clinically significant, sudden or life threatening deterioration of the following system(s) required my full and direct attention, intervention and personal management. The time I documented below is in addition to time spent performing reported procedures but includes the following listed in this critical care notation.
--- NOTE | 2023-01-06 10:19 | EXP.UTC ---
Discharge Plan Disposition Patient Disposition: Home, Self-Care Condition: Good Prescriptions Prescriptions: New azithromycin [Zithromax] 250 mg tablet 250 mg PO UD DOSE PK Qty: 6 0RF Rx Instructions: Take two (2) tablets today, then one (1) tablet days #2 thru #5 benzonatate [benzonatate] 100 mg capsule 100 mg PO TIDP PRN (Reason: Cough) Qty: 30 0RF methylprednisolone 4 mg Tablets,Dose Pack 4 mg PO DIRECTED Qty: 21 0RF promethazine-DM 6.25-15 mg/5 mL Syrup 5 ml PO Q6H PRN (Reason: Cough) Qty: 240 0RF Activity Restrictions/Add. Instructions Additional Instructions/Restrictions: Drink plenty of fluids. Take tylenol or ibuprofen for pain or fever. Take the medications as directed. Follow up with your regular doctor. GO TO THE ER FOR ANY WORSENING SYMPTOMS Clinical Impressions Clinical Impression: Sinusitis, Bronchitis Instructions Patient Instructions: DI for Sinusitis, DI for Acute Bronchitis Discharge ED Provider: Nazario Whitten [facility] [place] General Stated complaint: SORE THROAT-COUGHING Time Seen by Provider: 01/06/23 09:43 History of Present Illness Provider Complaint: She states that for the past 5 days she has had chills, nausea, productive cough, and malaise. Related Data Previous Rx's Medication Instructions Recorded azithromycin 250 mg tablet 250 mg PO UD DOSE PK #6 tabs 01/06/23 (Zithromax) benzonatate 100 mg capsule 100 mg PO TIDP PRN Cough #30 caps 01/06/23 methylprednisolone 4 mg tablets in 4 mg PO DIRECTED #21 tabs 01/06/23 a dose pack promethazine-DM 6.25 mg-15 mg/5 mL 5 ml PO Q6H PRN Cough #240 mL 01/06/23 oral syrup Allergies Allergy/AdvReac Type Severity Reaction Status Date / Time No Known Allergies Allergy Verified 01/06/23 10:25 [facility] Disclaimer: The information contained in this section may have been updated after the patient was seen, as this information can be updated by other users. Medical History Kidney stone Surgical History History of appendectomy History of section Social History Smoking Status: Never smoker alcohol intake: never substance use type: denies use current occupational status: other Travel in the last 8 weeks: None ROS Obtained: Yes All systems reviewed & no additional complaints except as documented Constitutional Constitutional: Reports chills and Reports fever(s) Eyes Eyes: Denies eye discharge ENT Ears, Nose, Mouth, and Throat: Reports as per HPI Cardiovascular Cardiovascular: Denies chest pain Respiratory Respiratory: Denies chest congestion and Reports cough Gastrointestinal Gastrointestingal: Reports nausea; Denies abdominal pain, constipation, cramping, diarrhea or vomiting Musculoskeletal Musculoskeletal: Denies arthralgias Integumentary/Breasts Skin/Breast: Denies rash Neurologic Neurologic: Denies paresthesias Physical Exam General General appearance: alert and in no apparent distress Head Head exam: atraumatic, normocephalic and normal inspection Eye Eye exam: Present normal appearance, PERRL and EOMI ENT ENT exam: Present mucous membranes moist and normal external ear exam Expanded ENT Exam TM/Canal exam: Bilateral TM: erythema and bulging Nose exam: Absent sinus tenderness Mouth exam: Present normal external inspection; Absent drooling Teeth exam: Present normal inspection Throat exam: Present tonsillar erythema, tonsillomegaly and tonsillar exudate Neck Neck exam: Present normal inspection, full ROM and trachea midline; Absent tenderness, meningismus or lymphadenopathy Chest Chest inspection: Present normal inspection and symmetric chest wall rise; Absent tenderness Respiratory Respiratory exam: Present normal lung sounds bilaterally; Absent respiratory distress, wheezes or stridor Cardiova
[2023-01-06 10:20] VITALS: BP 116/78; PULSE 84; RESP 20; TEMP 36.6; O2SAT 98; BMI 37.4
[2023-01-06 10:41] LABS: UTC Strep Screen (Rapid) Negative (Negative)
[2023-01-06 11:20] VITALS: BP 116/78; PULSE 84; RESP 20; TEMP 36.6; O2SAT 98
== END 2023-01-06 11:21 | disposition home or self-care (01) ==
PROVIDERS: Emergency Provider Nurse Practitioner Family
DX: J20.9 Acute bronchitis, unspecified (principal); J01.90 Acute sinusitis, unspecified; R11.0 Nausea; R50.9 Fever, unspecified
CPT/HCPCS: 87880; 99212; 99214; G0463

== ENCOUNTER 2023-06-26 08:35 | Emergency (ER) | payer BC, SELFPAY ==
[2023-06-26 08:55] VITALS: BP 152/100; PULSE 91; RESP 21; TEMP 36.9; O2SAT 98; BMI 37.4
[2023-06-26 09:09] LABS: UTC Strep Screen (Rapid) Negative (Negative)
--- NOTE | 2023-06-26 09:12 | EXP.UTC ---
Discharge Plan Disposition Patient Disposition: Home, Self-Care Condition: Good Prescriptions Prescriptions: New methylprednisolone [Medrol (Miguel)] 4 mg tablets,dose pack See Rx Instructions .Route .COMPLEX 6 Days Qty: 21 0RF Rx Instructions: taper pack; amoxicillin-pot clavulanate 875-125 mg Tablet 1 tab PO Q12H Qty: 20 0RF guaifenesin [Mucinex] 600 mg tablet extended release 12hr 1,200 mg PO BID PRN (Reason: cough) Qty: 20 0RF Referrals Follow up/Referrals: Provider,Referral, MD [Primary Care Provider] - See instructions Activity Restrictions/Add. Instructions Additional Instructions/Restrictions: Start antibiotic today. Be sure to complete entire prescription even if feeling better Monitor temp. Tylenol every 4 hours as needed and / or ibuprofen every 6 hours as needed ( As long as your primary care physician has told you that it ok to take both. For fever/aches/pains ER if no less than 101 despite Tylenol or Motrin Humidifier/vaporizer or hot steamy shower Mucinex during the day for your cough and cough suppressant only at night. Be sure to drink lots of water. *Start steroid today. Helps with inflammation therefore, cough and wheezing. Follow directions on the package. Reviewed side effects. Patient reports taking them before. Your blood pressure was elevated in the [facility] today make sure to follow up with your Family Doctor for recheck Follow up IMMEDIATELY for new or worsening of symptoms OR no noticeable improvement over the next 48-72 hours. 911 immediately for any life threatening symptoms such as chest pain or difficulty breathing Clinical Impressions Clinical Impression: Otitis media Qualifiers: Otitis media type: unspecified Laterality: right Qualified Code(s): H66.91 - Otitis media, unspecified, right ear Instructions Patient Instructions: Sore Throat, Middle Ear Infection Discharge ED Provider: Radha Norman [facility] [place] HPI General Stated complaint: sore throat, runny nose right ear pain nausea Mode of Arrival: Ambulatory Source of Information: Patient Limitations: No Limitations Time Seen by Provider: 06/26/23 09:12 Description of Symptoms (Recalled from Triage Doc. by RN): PATIENT C/O SORE THROAT, COUGH WITH YELLOW-GREEN SPUTUM, RIGHT EAR ACHE, NAUSEA AND RUNNY NOSE SINCE FRIDAY HEENT Symptoms (Recalled from RN notes): Yes Resp Symptoms (Recalled from RN notes): Yes Skin Symptoms (Recalled from RN notes): No MS Symptoms (Recalled from RN notes): No Functional Status (Recalled from RN notes): WNL History of Present Illness Provider Complaint: Patient states that she started getting sick on Friday with sore throat, sinus congestion and drainage and cough States that then she started with pain and pressure in her right ear that has continued to get worse States that she has had a little cough that is productive at times Related Data Previous Rx's Medication Instructions Recorded amoxicillin 875 mg-potassium 1 tab PO Q12H #20 tabs 06/26/23 clavulanate 125 mg tablet guaifenesin 600 mg tablet, 1,200 mg PO BID PRN cough #20 tabs 06/26/23 extended release 12 hr (Mucinex) methylprednisolone 4 mg tablets in See Rx Instructions .Route 06/26/23 a dose pack (Medrol (Miguel)) .COMPLEX 6 days #21 tabs Allergies Allergy/AdvReac Type Severity Reaction Status Date / Time No Known Allergies Allergy Verified 01/06/23 10:25 Worker's Comp Is this a Worker's Comp case?: No PFSH COUNT INCLUDES THE [facility] Disclaimer: The information contained in this section may have been updated after the patient was seen, as this information can be updated by other users. Medical History Kidney stone Surgical History History of appendectomy History of section Social History Smoking Status: Never smoker a
[2023-06-26 09:20] VITALS: BP 152/100; PULSE 91; RESP 21; TEMP 36.9; O2SAT 98
== END 2023-06-26 09:23 | disposition home or self-care (01) ==
PROVIDERS: Emergency Provider Nurse Practitioner
DX: H66.91 Otitis media, unspecified, right ear (principal); R09.81 Nasal congestion; R05.9 Cough, unspecified
CPT/HCPCS: 87880; 99212; 99214; G0463